=== PATIENT | female | born 1995 | race Caucasian/White ===

== ENCOUNTER 2022-08-10 09:25 | Emergency (ER) | payer MEDICAID ==
[~2022-08-10] VITALS: Ht 152.4 cm; Wt 45.0 kg
[2022-08-10 09:36] VITALS: BP 126/77
[2022-08-10] MEDS ORDERED: AMOXICILLIN/POTASSIUM CLAVULANATE 875/125MG TAB PO ONE (10:15)
[2022-08-10] MEDS ORDERED: AMOX1TAB16 MT (10:28)
== END 2022-08-10 10:46 | disposition home or self-care (01) ==
LOC: ER 09:45
DX: L03.211 Cellulitis of face (principal); L02.01 Cutaneous abscess of face
CPT/HCPCS: 99283

== ENCOUNTER 2024-02-06 17:16 | Emergency (ER) | payer MEDICAID ==
[~2024-02-06] VITALS: Ht 152.4 cm; Wt 40.8 kg
[~2024-02-06 17:16] MED LIST: AMOX1TAB16 MT
[2024-02-06 17:18] VITALS: O2SAT 100
[2024-02-06] MEDS: MAGNESIUM/ALUMINUM HYDROXIDE/SIMETHICONE 30ML UDC PO STA (18:33)
[2024-02-06] MEDS: FAMOTIDINE 20MG/2ML VIAL IV STA (18:33)
[2024-02-06 19:26] LABS: BASOPHILS % 1.5 % (0.0-2.0); HEMATOCRIT. 41.5 % (36.0-48.0); HEMOGLOBIN. 14.1 g/dL (12.0-16.0); LYMPHOCYTES % 26.2 % (20.0-50.0); MEAN CORPUSCULAR HGB CONC 33.9 g/dL (31.0-37.0); MEAN CORPUSCULAR VOLUME 88.4 fL (81.0-99.0); MEAN PLATELET VOLUME 9.2 fl (7.4-10.4); MONOCYTES % 7.5 % (2.0-8.0); NEUTROPHILS % 63.8 % (40.0-76.0); PLATELET 282 x1000/uL (130-400); RED BLOOD CELL COUNT 4.69 mill/uL (4.2-5.4); RED CELL DISTRIBUTION WIDTH 13.3 % (11.6-14.6); WHITE BLOOD COUNT 7.6 x1000/uL (4.5-11.0)
[2024-02-06 19:35] LABS: CHLORIDE 106 mEq/L (98-107); POTASSIUM 3.5 mEq/L (3.5-5.1); SODIUM 141 mEq/L (136-145)
[2024-02-06 19:36] LABS: CALCIUM 9.9 mg/dL (8.7-10.4); CARBON DIOXIDE 27 mEq/L (21-32)
[2024-02-06 19:41] LABS: CREATININE 0.7 mg/dL (0.6-1.0); GLUCOSE 102 mg/dL (70-105); UREA NITROGEN BLOOD 7 mg/dL (9-23)
[2024-02-06 19:43] LABS: ALANINE AMINOTRANSFERASE 9 IU/L (10-49); ASPARTATE AMINOTRANSFERASE 15 IU/L (<34); BILIRUBIN DIRECT 0.2 mg/dL (<=3.0); BILIRUBIN TOTAL 0.9 mg/dL (0.1-1.0); PROTEIN TOTAL 7.5 g/dL (6.0-8.3)
[2024-02-06 20:31] LABS: HCG SCREEN NEGATIVE
[2024-02-06] MEDS ORDERED: FAMO-135 PO (22:21)
[2024-02-06] MEDS ORDERED: MAG355OR21 MT (22:21)
[2024-02-06 22:35] VITALS: BP 125/86; PULSE 74; RESP 19; TEMP 36.83628; O2SAT 99
[2024-02-06] MEDS ORDERED: IOHEXOL-300 100 ML BOTTLE ONE (23:23)
== END 2024-02-06 22:30 | disposition home or self-care (01) ==
LOC: ER 17:16
DX: R10.13 Epigastric pain (principal)
CPT/HCPCS: 80076; 80048; 84703; 83690; 85025; 36415; 74177; 96374; 99285; Q9967; J3490; Z7610 ×2

== ENCOUNTER 2024-06-22 19:29 | Emergency (ER) | payer MEDICAID ==
[~2024-06-22] VITALS: Ht 157.5 cm; Wt 41.7 kg
[~2024-06-22 19:29] MED LIST changes: +FAMO-135 PO; +MAG355OR21 MT
[2024-06-22 20:18] VITALS: O2SAT 99
[2024-06-23] MEDS: ONDANSETRON HCL 4MG TABLET PO ONE (00:30)
[2024-06-23] MEDS: ACETAMINOPHEN 325MG TABLET PO ONE (00:30)
[2024-06-23 00:39] VITALS: BP 122/63; PULSE 90; RESP 17; TEMP 37.16964; O2SAT 99
== END 2024-06-23 00:50 | disposition home or self-care (01) ==
LOC: ER 19:29
DX: J11.1 Influenza due to unidentified influenza virus with other respiratory manifestations (principal); Z20.822 Contact with and (suspected) exposure to COVID-19
CPT/HCPCS: 99284; 71046; 87426; 87804 ×2; Q0162